=== PATIENT | male | born 1985 | race Caucasian/White ===

== ENCOUNTER 2017-10-18 17:23 | Emergency (ER) | payer SELFPAY ==
[2017-10-18] MEDS ORDERED: Bacitracin Zinc 1 Packet ONE (17:56)
== END 2017-10-18 18:00 | disposition home or self-care (01) ==
LOC: BURERS 17:23
DX: S61.412A Laceration without foreign body of left hand, initial encounter (principal); W26.0XXA Contact with knife, initial encounter
CPT/HCPCS: 12002